=== PATIENT | female | born 1960 | race African-American/Black ===

== ENCOUNTER 2016-12-26 06:46 | Emergency (ER) | payer OTHER ==
[~2016-12-26] VITALS: Ht 167.6 cm; Wt 141.0 kg
[2016-12-26] MEDS ORDERED: ONDANSETRON HCL 4MG/2ML VIAL IV STA (07:03)
[2016-12-26] MEDS ORDERED: SODIUM CHLORIDE 0.9% 500 ML IV ONE (07:03)
[2016-12-26] MEDS ORDERED: MORPHINE SULFATE 4 MG/ML CPJ (NOT FOR IM USE) IV STA (07:03)
[2016-12-26] MEDS ORDERED: TETANUS, DIPHTHERIA, PERTUSSIS VAC/PF 0.5ML (>7YR OLD) IM ONE (07:15)
[2016-12-26] MEDS ORDERED: KETOROLAC 30MG/ML VIAL IV ONE (12:00)
[2016-12-26 14:10] VITALS: BP 145/76
== END 2016-12-26 14:13 | disposition home or self-care (01) ==
LOC: ER 06:46
DX: S70.02XA Contusion of left hip, initial encounter (principal); S80.02XA Contusion of left knee, initial encounter; S60.419A Abrasion of unspecified finger, initial encounter; I10 Essential (primary) hypertension; W01.0XXA Fall on same level from slipping, tripping and stumbling without subsequent striking against object, initial encounter; Y93.01 Activity, walking, marching and hiking; Y92.89 Other specified places as the place of occurrence of the external cause; Z88.1 Allergy status to other antibiotic agents; Z90.710 Acquired absence of both cervix and uterus; Z90.49 Acquired absence of other specified parts of digestive tract
CPT/HCPCS: 72192; 73140; 73521; 73562; 73700; 82962; 90471; 90715; 96361; 96374; 96375; 99284; J1885; J2270; J2405; J7040